=== PATIENT | male | born 1960 | race Caucasian/White ===

== ENCOUNTER → 2016-09-11 | Day surgery (SDC) | payer BC ==
[2016-09-02 13:19] VITALS: Ht 188 cm; Wt 95.5 kg
[~2016-09-11] VITALS: Ht 188 cm; Wt 95.5 kg
[~2016-09-11] MED LIST: CALC-214 PO; LIDOCAINE HCL 2% 2 ML VIAL (20MG/ML) ONE; METHYLENE BLUE 1% 1 ML VIAL ONE; MULT-506 PO; OMEG10007 PO; PROPOFOL IV EMULSION 10 MG/ML 20 ML VIAL IV ONE; SODIUM CHLORIDE 0.9% 500ML 500 ML IV ONE
--- NOTE | 2016-09-11 14:18 | Endo History and Physical ---
History & Physical Date of Service: Sep 11, 2016. Chief Complaint: Hepatic flexure polyp Referring Physician: Jer History of Present Illness hepatic flexure polyp Past Surgical History Hx Cardiac Surgery: No Hx Internal Defibrillator: No Hx Pacemaker: No Hx Abdominal Surgery: No Hx of Implantable Prosthesis: No Hx Post-Op Nausea and Vomiting: No Hx Cancer Surgery: No Hx Thoracic Surgery: No Hx Orthopedic: No Hx Urinary Tract Surgery: Yes (KIDNEY STONE EXTRACTION X 2) Family History Polyp Social History Smoking Status: Never Smoker Hx Substance Use: No Hx Alcohol Use: Yes (RARELY) Allergies Coded Allergies: Morphine (Verified Allergy, Unknown, HALLUCINATIONS, 09/02/16) Current Medications Reported Home Medications Medications Dose Route/Sig Max Daily Dose Days Date Category Dose Instructions [place]-3 (Fish Oil) 1 Ea Cap 1 Cap PO QAM 09/02/16 Reported Calcium & Magnesium (Calcium W/ Magnesium) 1 Tab Tab 1 Tab PO QAM 09/02/16 Reported WITH VITAMIN D Multivitamin (Multivitamins) Tab 1 Tab PO QAM 09/02/16 Reported Vital Signs Weight (Kilograms): 95.45 Height (Feet): 6 Height (Inches): 2 Date Time Temp Pulse Resp B/P Pulse Ox O2 Delivery O2 Flow Rate FiO2 09/11/16 13:25 36.7 69 18 141/94 97 Room Air Physical Exam AAO x3 Nl s1s2 lungs CTA abd soft NT/ND + BS - CCE Assessment and Plan colonoscopy for hepatic flexure EMR
--- NOTE | 2016-09-11 15:33 | Discharge Instructions ---
Endoscopy Patient Instructions Date / Procedure(s) Performed Sep 11, 2016. Colonoscopy Allergy Information Coded Allergies: Morphine (Verified Allergy, Unknown, HALLUCINATIONS, 09/02/16) Discharge Date / Findings Sep 11, 2016. colon polyp removed by EMR Medication Instructions Restart Stopped Medication(s): Reported Home Medications Medications Dose Route/Sig Max Daily Dose Days Date Category Dose Instructions [place]-3 (Fish Oil) 1 Ea Cap 1 Cap PO QAM 09/02/16 Reported Calcium & Magnesium (Calcium W/ Magnesium) 1 Tab Tab 1 Tab PO QAM 09/02/16 Reported WITH VITAMIN D Multivitamin (Multivitamins) Tab 1 Tab PO QAM 09/02/16 Reported Reported Home Medications Medications Dose Route/Sig Max Daily Dose Days Date Category Dose Instructions [place]-3 (Fish Oil) 1 Ea Cap 1 Cap PO QAM 09/02/16 Reported Calcium & Magnesium (Calcium W/ Magnesium) 1 Tab Tab 1 Tab PO QAM 09/02/16 Reported WITH VITAMIN D Multivitamin (Multivitamins) Tab 1 Tab PO QAM 09/02/16 Reported Provider Instructions Activity Restrictions - No exercising or heavy lifting for 24 hours. - Do not drink alcohol the day of the procedure. - Do not drive a car or operate machinery until the day after the procedure. - Do not make any important decisions or sign important papers in 24 hours after the procedure. Following Day: - Return to full activity which may include returning to work/school. Diet Start your diet with liquids and light foods (jello, soup, juice, toast). Then eat your usual diet if not nauseated. Treatment For Common After Affects For mild abdominal pain, bloating, or excessive gas: - Rest - Eat lightly - Lie on right side Follow-Up Information Follow-up with Jer as scheduled Anesthesia Information What You Should Know You have had a procedure that required some medicine to reduce anxiety and discomfort. This treatment is called moderate sedation. After receiving the treatment, you may be sleepy, but you will be able to breathe on your own. The effects of the treatment may last for several hours. Follow these instructions along with Activity/Diet recommendations noted above: * Do NOT do anything where dizziness or clumsiness would be dangerous. * Rest quietly at home today, then you can be up and about tomorrow. * Have a responsible person stay with you the rest of today. * You may have had an I.V. today. If so, you may take the dressing off later today. Recommendations Call your doctor if: * Trouble breathing * Continuous vomiting for more than 24 hours * Temperature above 101 degrees * Severe abdominal pain or bloating * Pain not relieved by pain medicine ordered * There is increased drainage or redness from any incision * A large amount of rectal bleeding greater than 2-3 tablespoons. (If you had a polyp/s removed or have hemorrhoids, a small amount of blood - from the rectum is to be expected.) * You have any unanswered questions or concerns. IN THE EVENT OF A SERIOUS EMERGENCY, GO TO THE NEAREST EMERGENCY ROOM Your discharge instructions were prepared by provider Tutu Nieto. Patient Instructions Signature Page Mak Sauer Patient (or Guardian) Signature/Date: I have read and understand the instructions given to me by my caregivers. Caregiver/RN/Doctor Signature/Date: The above-named patient and/or guardian has received patient instructions on this date. + Original Patient Signature Page (only) stays with chart. Please make copy for patient.
[2016-09-11 15:50] VITALS: BP 119/75; PULSE 57; O2SAT 99
--- NOTE | 2016-09-11 15:52 | GI REPORT ---
Procedure Date: 09/11/2016 2:18 PM Procedure: Colonoscopy Indications: Therapeutic procedure for colon polyps Medicines: Propofol per Anesthesia Complications: No immediate complications. Estimated blood loss: Minimal. Estimated Blood Loss: Estimated blood loss was minimal. Procedure: Pre-Anesthesia Assessment: - Prior to the procedure, a History and Physical was performed, and patient medications and allergies were reviewed. The patient's tolerance of previous anesthesia was also reviewed. The risks and benefits of the procedure and the sedation options and risks were discussed with the patient. All questions were answered, and informed consent was obtained. Prior Anticoagulants: The patient has taken no previous anticoagulant or antiplatelet agents. ASA Grade Assessment: I - A normal, healthy patient. After reviewing the risks and benefits, the patient was deemed in satisfactory condition to undergo the procedure. After I obtained informed consent, the scope was passed under direct vision. Throughout the procedure, the patient's blood pressure, pulse, and oxygen saturations were monitored continuously. The scope was introduced through the anus and advanced to the terminal ileum, with identification of the appendiceal orifice and IC valve. The colonoscopy was performed without difficulty. The patient tolerated the procedure well. The quality of the bowel preparation was fair. Findings: The perianal and digital rectal examinations were normal. Pertinent negatives include normal sphincter tone, no palpable rectal lesions and no anal lesion or abnormality was detected. Two sessile and semi-pedunculated polyps were found at the hepatic flexure. The polyps were 8 to 30 mm in size. Area was successfully injected with 15 mL saline with methylene blue for a lift polypectomy by endoscopic mucosal resection. the area was marked with the injectant. These polyps were removed with a hot snare. Resection and retrieval were complete. Biopsies were taken with a cold forceps for histology of any residual mariginal polypoid appearing tissue. Fulguration to ablate the lesion remnants by bipolar probe was successful. To prevent bleeding after mucosal resection, four hemostatic clips were successfully placed (MR conditional). There was no bleeding at the end of the procedure. The exam was otherwise without abnormality. The terminal ileum appeared normal. The retroflexed view of the distal rectum and anal verge was normal and showed no anal or rectal abnormalities. Impression: - Two 8 to 30 mm polyps at the hepatic flexure, removed with a hot snare. Resected and retrieved by EMR technique. Injected. Biopsied. Treated with bipolar cautery. Clips (MR conditional) were placed. - The examination was otherwise normal. - The examined portion of the ileum was normal. - The distal rectum and anal verge are normal on retroflexion view. Recommendation: - Discharge patient to home (ambulatory). - Patient has a contact number available for emergencies. The signs and symptoms of potential delayed complications were discussed with the patient. Return to normal activities tomorrow. Written discharge instructions were provided to the patient. - Clear liquid diet today. - Resume regular diet tomorrow. - Repeat colonoscopy in 6 months per protocol. - Return to referring physician as previously scheduled. MD Tutu Rangel MD 09/11/2016 3:52:33 PM This report has been signed electronically. Note Initiated On: 09/11/2016 2:18 PM I attest to the content of the Intraoperative Record and orders documented therein, exceptions below
--- NOTE | 2016-09-11 15:52 | Anesthesiology Progress Note ---
Anesthesia Post Op Note Date & Time Sep 11, 2016 at 15:52 Vital Signs Pain Intensity: 0 Vital Signs Past 12 Hours Date Time Temp Pulse Resp B/P Pulse Ox O2 Delivery O2 Flow Rate FiO2 09/11/16 15:50 57 16 119/75 99 Room Air 09/11/16 15:35 58 16 115/78 99 Room Air 09/11/16 15:20 62 14 95/58 99 Room Air 09/11/16 13:25 36.7 69 18 141/94 97 Room Air Notes Mental Status: alert / awake / arousable, participated in evaluation Pt Amnestic to Procedure: Yes Nausea / Vomiting: adequately controlled Pain: adequately controlled Airway Patency, RR, SpO2: stable & adequate BP & HR: stable & adequate Hydration State: stable & adequate Anesthetic Complications: no major complications apparent
== END | disposition home or self-care (01) ==
LOC: C.GI 12:35
PROVIDERS: ATTEND Internal Medicine Gastroenterology
DX: D12.3 Benign neoplasm of transverse colon (principal); Z88.5 Allergy status to narcotic agent; Z68.27 Body mass index [BMI] 27.0-27.9, adult; Z83.71 Family history of colonic polyps

== ENCOUNTER → 2017-04-21 | Day surgery (SDC) | payer BC ==
[2017-04-07 14:43] VITALS: BMI 27.0
[~2017-04-21] VITALS: Ht 188 cm; Wt 95.5 kg
[~2017-04-21] MED LIST changes: -METHYLENE BLUE 1% 1 ML VIAL ONE; +MIDAZOLAM HCL 1 MG/ML 2ML VIAL ONE
[2017-04-21 12:33] VITALS: Ht 188 cm; Wt 95.5 kg
--- NOTE | 2017-04-21 12:57 | Endo History and Physical ---
History & Physical Date of Service: Apr 21, 2017. Chief Complaint: COLON POLYP HX Referring Physician: DR APONTE History of Present Illness prior EMR for colonic polyps- for reassess and therapy of polyps Past Surgical History Hx Cardiac Surgery: No Hx Internal Defibrillator: No Hx Pacemaker: No Hx Abdominal Surgery: No Hx of Implantable Prosthesis: No Hx Post-Op Nausea and Vomiting: No Hx Cancer Surgery: No Hx Thoracic Surgery: No Hx Orthopedic: No Hx Urinary Tract Surgery: Yes (KIDNEY STONE EXTRACTION X 2) Family History Polyp Social History Smoking Status: Never Smoker Hx Substance Use: No Hx Alcohol Use: Yes (RARELY) Allergies Coded Allergies: Morphine (Verified Allergy, Unknown, HALLUCINATIONS, 04/07/17) Current Medications Reported Home Medications Medications Dose Route/Sig Max Daily Dose Days Date Category Dose Instructions [place]-3 (Fish Oil) 1 Ea Cap 1 Cap PO QAM 09/02/16 Reported Calcium & Magnesium (Calcium W/ Magnesium) 1 Tab Tab 1 Tab PO QAM 09/02/16 Reported WITH VITAMIN D Multivitamin (Multivitamins) Tab 1 Tab PO QAM 09/02/16 Reported Vital Signs Weight (Kilograms): 95.45 Height (Feet): 6 Height (Inches): 2 Date Time Temp Pulse Resp B/P (MAP) Pulse Ox O2 Delivery O2 Flow Rate FiO2 04/21/17 12:48 36.6 70 18 129/63 (85) 95 Room Air Physical Exam AAOx3 Nl s1s2 Lungs CTA Abd soft NT/ND + BS - CCE consent obtained, risks/benefits and alternatives d/w pt including increaseed risk of perforation depending on technique required for residual polyp if detected Assessment and Plan colonoscopy/ possible EMR pt agrees to proceed [place]
--- NOTE | 2017-04-21 13:34 | Discharge Instructions ---
Endoscopy Patient Instructions Date / Procedure(s) Performed Apr 21, 2017. Colonoscopy Allergy Information Coded Allergies: Morphine (Verified Adverse Reaction, Intermediate, HALLUCINATIONS, 04/21/17 ) Discharge Date / Findings Apr 21, 2017. hemorrhoids; diverticulosis; no polyps Medication Instructions Stopped Medication(s): MULTIVITAMIN, OMEGA 3, CALCIUM WITH MAGNESIUM-LAST DOSE 04/17/17 Restart Stopped Medication(s): Reported Home Medications Medications Dose Route/Sig Max Daily Dose Days Date Category Dose Instructions [place]-3 (Fish Oil) 1 Ea Cap 1 Cap PO QAM 09/02/16 Reported Calcium & Magnesium (Calcium W/ Magnesium) 1 Tab Tab 1 Tab PO QAM 09/02/16 Reported WITH VITAMIN D Multivitamin (Multivitamins) Tab 1 Tab PO QAM 09/02/16 Reported Reported Home Medications Medications Dose Route/Sig Max Daily Dose Days Date Category Dose Instructions [place]-3 (Fish Oil) 1 Ea Cap 1 Cap PO QAM 09/02/16 Reported Calcium & Magnesium (Calcium W/ Magnesium) 1 Tab Tab 1 Tab PO QAM 09/02/16 Reported WITH VITAMIN D Multivitamin (Multivitamins) Tab 1 Tab PO QAM 09/02/16 Reported Provider Instructions Activity Restrictions - No exercising or heavy lifting for 24 hours. - Do not drink alcohol the day of the procedure. - Do not drive a car or operate machinery until the day after the procedure. - Do not make any important decisions or sign important papers in 24 hours after the procedure. Following Day: - Return to full activity which may include returning to work/school. Diet Start your diet with liquids and light foods (jello, soup, juice, toast). Then eat your usual diet if not nauseated. Treatment For Common After Affects For mild abdominal pain, bloating, or excessive gas: - Rest - Eat lightly - Lie on right side Follow-Up Information Follow-up with DR APONTE as scheduled Anesthesia Information What You Should Know You have had a procedure that required some medicine to reduce anxiety and discomfort. This treatment is called moderate sedation. After receiving the treatment, you may be sleepy, but you will be able to breathe on your own. The effects of the treatment may last for several hours. Follow these instructions along with Activity/Diet recommendations noted above: * Do NOT do anything where dizziness or clumsiness would be dangerous. * Rest quietly at home today, then you can be up and about tomorrow. * Have a responsible person stay with you the rest of today. * You may have had an I.V. today. If so, you may take the dressing off later today. Recommendations Call your doctor if: * Trouble breathing * Continuous vomiting for more than 24 hours * Temperature above 101 degrees * Severe abdominal pain or bloating * Pain not relieved by pain medicine ordered * There is increased drainage or redness from any incision * A large amount of rectal bleeding greater than 2-3 tablespoons. (If you had a polyp/s removed or have hemorrhoids, a small amount of blood - from the rectum is to be expected.) * You have any unanswered questions or concerns. IN THE EVENT OF A SERIOUS EMERGENCY, GO TO THE NEAREST EMERGENCY ROOM Your discharge instructions were prepared by provider Tutu Nieto. Patient Instructions Signature Page Mak Sauer Patient (or Guardian) Signature/Date: I have read and understand the instructions given to me by my caregivers. Caregiver/RN/Doctor Signature/Date: The above-named patient and/or guardian has received patient instructions on this date. + Original Patient Signature Page (only) stays with chart. Please make copy for patient.
--- NOTE | 2017-04-21 13:41 | GI REPORT ---
Procedure Date: 04/21/2017 12:54 PM Procedure: Colonoscopy Indications: Therapeutic procedure for colon polyps Medicines: Propofol per Anesthesia Complications: No immediate complications. Estimated blood loss: None. Estimated Blood Loss: Estimated blood loss: none. Procedure: Pre-Anesthesia Assessment: - Prior to the procedure, a History and Physical was performed, and patient medications and allergies were reviewed. The patient's tolerance of previous anesthesia was also reviewed. The risks and benefits of the procedure and the sedation options and risks were discussed with the patient. All questions were answered, and informed consent was obtained. Prior Anticoagulants: The patient has taken no previous anticoagulant or antiplatelet agents. ASA Grade Assessment: II - A patient with mild systemic disease. After reviewing the risks and benefits, the patient was deemed in satisfactory condition to undergo the procedure. After I obtained informed consent, the scope was passed under direct vision. Throughout the procedure, the patient's blood pressure, pulse, and oxygen saturations were monitored continuously. The On-site loaner was introduced through the anus and advanced to the terminal ileum, with identification of the appendiceal orifice and IC valve. The colonoscopy was performed without difficulty. The patient tolerated the procedure well. The quality of the bowel preparation was good. Findings: The perianal and digital rectal examinations were normal. Pertinent negatives include normal sphincter tone, no palpable rectal lesions and no anal lesion or abnormality was detected. A few small-mouthed diverticula were found in the sigmoid colon. Non-bleeding internal hemorrhoids were found during retroflexion. The hemorrhoids were mild. The exam was otherwise without abnormality. The terminal ileum appeared normal. No additional abnormalities were found on retroflexion. hepatic flexure with tattoo visualized and post polypectomy scar without residual polypoid tissue. Impression: - Diverticulosis in the sigmoid colon. - Non-bleeding internal hemorrhoids. - The examination was otherwise normal. - The examined portion of the ileum was normal. - No specimens collected. Recommendation: - Discharge patient to home (ambulatory). - Resume regular diet. - Continue present medications. - Repeat colonoscopy in 3 years for surveillance. - Return to referring physician as previously scheduled. MD Tutu Rangel MD 04/21/2017 1:40:50 PM This report has been signed electronically. Note Initiated On: 04/21/2017 12:54 PM I attest to the content of the Intraoperative Record and orders documented therein, exceptions below
--- NOTE | 2017-04-21 13:48 | Anesthesiology Progress Note ---
Anesthesia Post Op Note Date & Time Apr 21, 2017 at 13:48 Vital Signs Pain Intensity: 0 Vital Signs Past 12 Hours Date Time Temp Pulse Resp B/P (MAP) Pulse Ox O2 Delivery O2 Flow Rate FiO2 04/21/17 13:35 68 16 118/62 (80) 97 Room Air 04/21/17 12:48 36.6 70 18 129/63 (85) 95 Room Air Notes Mental Status: alert / awake / arousable, participated in evaluation Pt Amnestic to Procedure: Yes Nausea / Vomiting: adequately controlled Pain: adequately controlled Airway Patency, RR, SpO2: stable & adequate BP & HR: stable & adequate Hydration State: stable & adequate Anesthetic Complications: no major complications apparent
[2017-04-21 14:05] VITALS: BP 126/78; PULSE 68; O2SAT 98
== END | disposition home or self-care (01) ==
LOC: C.GI 12:19
PROVIDERS: ATTEND Internal Medicine Gastroenterology
DX: Z86.010 Personal history of colon polyps (principal); K57.30 Diverticulosis of large intestine without perforation or abscess without bleeding; K64.8 Other hemorrhoids

== ENCOUNTER → 2017-07-02 | Outpatient (CLI) | payer BC ==
[~2017-07-02] MED LIST changes: -LIDOCAINE HCL 2% 2 ML VIAL (20MG/ML) ONE; -MIDAZOLAM HCL 1 MG/ML 2ML VIAL ONE; -PROPOFOL IV EMULSION 10 MG/ML 20 ML VIAL IV ONE; -SODIUM CHLORIDE 0.9% 500ML 500 ML IV ONE
[2017-07-02 16:39] LABS: BASO % 0.5 %; BASO ABS # 0.04 K/uL (0-0.2); COMPLETE YES; EOS % 1.3 %; IG% 0.5 %; LYMPH % 23.2 %; LYMPH ABS # 1.85 K/uL (1.2-3.4); MEAN CELL VOLUME 87.6 fL (80-100); MEAN CORPUSCULAR HEMOGLOBIN 31.8 pg (25-34); MEAN CORPUSCULAR HGB CONC 36.3 g/dl (32-36); MEAN PLATELET VOLUME 10.4 fL (7.4-10.4); MONO % 6.9 %; NEUT % 67.6 %; PLATELET COUNT 203 K/uL (130-400); RED BLOOD COUNT 5.25 M/uL (4.7-6.1); WHITE BLOOD COUNT 7.99 K/uL (4.8-10.8)
[2017-07-02 16:47] LABS: PROTHROMBIN TIME (PATIENT) 10.1 SECONDS (9.0-12.0)
[2017-07-02 16:58] LABS: BLOOD UREA NITROGEN 19 mg/dl (7-18); BUN/CREATININE RATIO 23.3 (10-20); CALCIUM 8.6 mg/dl (8.5-10.1); CARBON DIOXIDE 23 mmol/L (21-32); CHLORIDE 105 mmol/L (98-107); CREATININE 0.81 mg/dl (0.60-1.40); GLUCOSE 123 mg/dl (70-99); POTASSIUM 3.6 mmol/L (3.5-5.1); SODIUM 135 mmol/L (136-145); URIC ACID 5.8 mg/dl (2.6-7.2)
[2017-07-02 17:09] LABS: ALB/GLOB RATIO 1.1 (0.9-2); ALKALINE PHOSPHATASE 63 U/L (45-117); ALT/SGPT 57 U/L (12-78); AST/SGOT 31 U/L (15-37)
[2017-07-03 07:13] LABS: ESTIMATED AVERAGE GLUCOSE 105 mg/dl; HA1C FLAG Normal (Normal)
== END | disposition home or self-care (01) ==
LOC: C.LAB1850 14:58
PROVIDERS: ATTEND Internal Medicine Infectious Disease
DX: B18.2 Chronic viral hepatitis C (principal)

== ENCOUNTER → 2017-10-08 | Outpatient (CLI) | payer BC ==
[2017-10-08 13:36] LABS: BASO % 0.8 %; BASO ABS # 0.04 K/uL (0-0.2); EOS % 1.6 %; EOS ABS # 0.08 K/uL (0-0.5); HEMATOCRIT 44.6 % (42-52); HEMOGLOBIN 16.1 g/dL (14.0-18.0); LYMPH % 31.8 %; LYMPH ABS # 1.56 K/uL (1.2-3.4); MEAN CELL VOLUME 86.9 fL (80-100); MEAN CORPUSCULAR HEMOGLOBIN 31.4 pg (25-34); MEAN CORPUSCULAR HGB CONC 36.1 g/dl (32-36); MEAN PLATELET VOLUME 9.9 fL (7.4-10.4); MONO % 9.4 %; MONO ABS # 0.46 K/uL (0.11-0.59); NEUT % 56.4 %; NEUT ABS # 2.77 K/uL (1.4-6.5); PLATELET COUNT 205 K/uL (130-400); RED CELL DISTRIBUTION WIDTH CV 12.7 % (11.5-14.5); RED CELL DISTRIBUTION WIDTH SD 40.7 fL (36.4-46.3); WHITE BLOOD COUNT 4.91 K/uL (4.8-10.8)
[2017-10-08 13:59] LABS: ALBUMIN 4.1 gm/dl (3.4-5.0); ALT/SGPT 27 U/L (12-78); AST/SGOT 18 U/L (15-37); BLOOD UREA NITROGEN 11 mg/dl (7-18); CALCIUM 9.2 mg/dl (8.5-10.1); CARBON DIOXIDE 29 mmol/L (21-32); CREATININE 0.87 mg/dl (0.60-1.40); GLUCOSE 97 mg/dl (70-99); POTASSIUM 4.2 mmol/L (3.5-5.1); SODIUM 138 mmol/L (136-145)
[2017-10-08 14:01] LABS: ALKALINE PHOSPHATASE 59 U/L (45-117); TOTAL PROTEIN 7.6 gm/dl (6.4-8.2)
[2017-10-10 04:17] LABS: HEPATITIS C VIRAL RNA BY PCR <15 DETECTED IU/ML (<15); HEPATITIS C VIRAL RNA(LOG) PCR <1.18 DETECTED LOG IU/ML (<1.18)
== END | disposition home or self-care (01) ==
LOC: C.LABBC 11:17
PROVIDERS: ATTEND Internal Medicine Infectious Disease
DX: B18.2 Chronic viral hepatitis C (principal)

== ENCOUNTER → 2017-11-05 | Outpatient (CLI) | payer BC ==
[2017-11-05 13:10] LABS: BASO % 0.5 %; BASO ABS # 0.03 K/uL (0-0.2); EOS % 1.7 %; HEMATOCRIT 44.8 % (42-52); IG# 0.02 K/uL (0.00-0.02); LYMPH % 29.9 %; LYMPH ABS # 1.75 K/uL (1.2-3.4); MEAN CELL VOLUME 86.5 fL (80-100); MEAN CORPUSCULAR HEMOGLOBIN 30.9 pg (25-34); MEAN CORPUSCULAR HGB CONC 35.7 g/dl (32-36); MEAN PLATELET VOLUME 10.5 fL (7.4-10.4); MONO % 8.7 %; MONO ABS # 0.51 K/uL (0.11-0.59); NEUT % 58.9 %; NEUT ABS # 3.45 K/uL (1.4-6.5); PLATELET COUNT 204 K/uL (130-400); RED CELL DISTRIBUTION WIDTH CV 12.6 % (11.5-14.5); RED CELL DISTRIBUTION WIDTH SD 40.1 fL (36.4-46.3); WHITE BLOOD COUNT 5.86 K/uL (4.8-10.8)
[2017-11-05 14:29] LABS: ALBUMIN 3.9 gm/dl (3.4-5.0); ALT/SGPT 25 U/L (12-78); AST/SGOT 13 U/L (15-37); BLOOD UREA NITROGEN 12 mg/dl (7-18); CALCIUM 8.8 mg/dl (8.5-10.1); CARBON DIOXIDE 26 mmol/L (21-32); GLUCOSE 87 mg/dl (70-99); SODIUM 137 mmol/L (136-145)
[2017-11-05 14:32] LABS: ALKALINE PHOSPHATASE 60 U/L (45-117); TOTAL PROTEIN 7.4 gm/dl (6.4-8.2)
[2017-11-07 01:04] LABS: HEPATITIS C VIRAL RNA BY PCR <15 NOT DETECTED IU/ML (<15); HEPATITIS C VIRAL RNA(LOG) PCR <1.18 NOT DETECTED LOG IU/ML (<1.18)
== END | disposition home or self-care (01) ==
LOC: C.LABBC 11:53
PROVIDERS: ATTEND Internal Medicine Infectious Disease
DX: B18.2 Chronic viral hepatitis C (principal)